=== PATIENT | male | born 1930 | race Caucasian/White ===

== ENCOUNTER 2016-09-26 10:26 | Emergency (ER) | payer MEDICARE, OTHER ==
[2016-09-26] MEDS ORDERED: IOPAMIDOL-300 50 ML VIAL PO ONE (12:27)
== END 2016-09-26 14:18 | disposition home or self-care (01) ==
DX: R13.14 Dysphagia, pharyngoesophageal phase (principal); R93.3 Abnormal findings on diagnostic imaging of other parts of digestive tract; K21.9 Gastro-esophageal reflux disease without esophagitis; N28.1 Cyst of kidney, acquired; I48.91 Unspecified atrial fibrillation
CPT/HCPCS: 36415; 71250; 80053; 83690; 83735; 85025; 85610; 99283; 99284; Q9967